=== PATIENT | male | born 1960 | race African-American/Black ===

== ENCOUNTER 2024-09-13 20:34 | Emergency (ER) | payer SELFPAY ==
[~2024-09-13] VITALS: Ht 172.7 cm; Wt 118.0 kg
[2024-09-13 20:35] VITALS: O2SAT 100
[2024-09-13 20:41] VITALS: BP 104/71; PULSE 89; RESP 20; TEMP 36.7; O2SAT 98
[2024-09-13] MEDS: BACITRACIN ZINC OINT UDPKT TOP ONE (23:43)
[2024-09-13] MEDS: LIDOCAINE HCL/PF 1% 10 MG/ML 5ML VIAL INFIL ONE (23:43)
[2024-09-14] MEDS ORDERED: BO1 TP (02:30)
[2024-09-14] MEDS ORDERED: AMOX1TAB16 MT (02:30)
== END 2024-09-14 02:52 | disposition home or self-care (01) ==
LOC: ER 20:34
DX: L03.031 Cellulitis of right toe (principal); I25.2 Old myocardial infarction; Z98.890 Other specified postprocedural states
CPT/HCPCS: 99284; 11730; J2003

== ENCOUNTER 2024-09-15 04:57 | Emergency (ER) | payer MEDICAID ==
[~2024-09-15 04:57] MED LIST: AMOX1TAB16 MT; BO1 TP
[2024-09-15 05:45] VITALS: PULSE 96; RESP 20; O2SAT 99
== END 2024-09-15 05:53 | disposition left against medical advice (07) ==
LOC: ER 04:57
DX: Z48.00 Encounter for change or removal of nonsurgical wound dressing (principal); Z53.21 Procedure and treatment not carried out due to patient leaving prior to being seen by health care provider